=== PATIENT | female | born 1970 | race Two or more races ===

== ENCOUNTER 2019-03-14 09:49 | Day surgery (SDC) | payer BC ==
[~2019-03-14 09:49] MED LIST: CEFAZOLIN 2 GM/50 ML (PMX) 50 ML IVPB; SEVOFLURANE 15 MIN; SOD CHLORIDE 0.9% 1,000 ML IV
[2019-03-14] MEDS ORDERED: FENTAnyl 50 MCG/ML VIAL (10:18)
[2019-03-14] MEDS ORDERED: ONDANSETRON 4 MG INJ (10:19)
[2019-03-14] MEDS ORDERED: LIDOCAINE 2% (SDV) 5 ML INJ (10:21)
[2019-03-14] MEDS ORDERED: PROPOFOL 20 ML (10:21)
[2019-03-14] MEDS ORDERED: CEFAZOLIN 1 GM INJ (10:21)
[2019-03-14] MEDS ORDERED: MIDAZOLAM 1 MG/ML 2 ML INJ (10:21)
[2019-03-14] MEDS: BUPIVACAINE 0.25%/EPI (SDV) 30 ML INJ (13:37)
[2019-03-14] MEDS ORDERED: IBUPROFEN 600 MG TAB PO (14:00)
[2019-03-14] MEDS: KETOROLAC 30 MG INJ IV (14:38)
[2019-03-14] MEDS: ONDANSETRON 4 MG INJ IV (14:38)
[2019-03-14] MEDS: HYDROCODONE/APAP (5/325) TAB PO (14:43)
== END 2019-03-14 15:47 | disposition home or self-care (01) ==
LOC: SDS 09:49
DX: D24.2 Benign neoplasm of left breast (principal); Z85.3 Personal history of malignant neoplasm of breast
CPT/HCPCS: 19301; 84703; 88307